=== PATIENT | female | born 1970 | race Caucasian/White ===

== ENCOUNTER → 2024-01-19 14:16 | Outpatient (REF) | payer OTHER, SELFPAY | LOC: RCS 14:16 | PROVIDERS: ATTENDING PHYSICIAN Internal Medicine Cardiovascular Disease; FAMILY PHYSICIAN Student in an Organized Health Care Education/Training Program | DX: R07.89 Other chest pain (principal); R00.2 Palpitations; R93.1 Abnormal findings on diagnostic imaging of heart and coronary circulation | CPT/HCPCS: 93017; 93350 ==

== ENCOUNTER 2025-03-30 20:28 | Emergency (ER) | payer OTHER, SELFPAY ==
[2025-03-30 20:33] VITALS: BP 170/107
[2025-03-30 21:12] LABS: Hematocrit 41.5 % (37.0-47.0); Hemoglobin 14.0 g/dL (12.0-16.0); Mean Corp Hgb Conc. 33.7 g/dL (33.0-37.0); Mean Corpuscular Volume 87.6 fL (81.0-99.0); Nucleated Red Blood Cells % 0 %; Platelet Count 404 10^3/uL (130-400); Red Cell Dist. Width 12.4 % (11.5-14.5)
[2025-03-30 21:29] LABS: ALT (SGPT) 34 U/L (0-35); AST (SGOT) 27 U/L (14-36); Albumin 4.4 g/dl (3.5-5.0); Alkaline Phosphatase 69 U/L (38-126); Blood Urea Nitrogen 20 mg/dl (7-17); Calcium 9.4 mg/dl (8.4-10.2); Carbon Dioxide 26 mmol/L (22-30); Chloride 104 mmol/L (98-107); Glucose 151 mg/dl (70-99); Potassium 3.6 mmol/L (3.5-5.1); Sodium 137 mmol/L (135-145); Total Protein 7.3 g/dl (6.3-8.2); eGFR > 60.00
[2025-03-30 22:37] VITALS: BP 161/82
[2025-03-30 23:00] VITALS: BP 132/77
--- NOTE | 2025-03-30 23:42 | ED.GENMED ---
History of Present Illness
General
Chief Complaint: Blood Pressure Problem
Source: patient
Exam Limitations: none
Time Seen by Provider: 03/30/25 23:18
Nursing documentation reviewed up to this point in time: agreed with
History of Present Illness
History of Present Illness:
Patient with history of hypertension on lisinopril and HCTZ, presents to ED secondary to not feeling well at home. When she checks of blood pressure, her systolic blood pressure was greater than 180, prompting visit to ED. Denies blurry vision.
Denies dizziness. Denies loss of sensation or weakness. Denies difficulty with speech. Denies difficulty with ambulation. Patient did take her evening dose of lisinopril at 6:30 PM, prior to arrival.
Review of Systems
Review of Systems
Allergies reviewed?: Yes
Constitutional: Reports no symptoms
Respiratory: Reports no symptoms; Denies trouble breathing
Cardiac: Reports no symptoms; Denies chest pain or palpitations
ABD/GI: Reports no symptoms; Denies vomiting
Musculoskeletal: Reports no symptoms
Skin: Reports no symptoms
Neurological: Reports headache; Denies dizzy or weakness
Phy Exam
Physical Exam
Physical Exam:
Physical Exam
General: no apparent distress, not acutely ill. afebrile
Head: nc/at. eomi
Neck: supple. normal range of motion
Heart: s1/s2 regular rate and rhythm.
Lungs: no acute respiratory distress. clear bilaterally
Abdomen: normal bowel sounds. not tender.
Neuro: alert and oriented x 3. no focal neurological deficits. normal speech
Skin: no rash
Psychiatric: well kept. interactive and cooperative
Extremities: no edema. no calf tenderness.
Course
Orders/Labs/Results
Orders:
Orders
03/30/25 20:36
EKG [Electrocardiogram (*1)] Urgent
Reason for Study: Tachycardia
EKG- Treatment ONCE
03/30/25 21:02
Complete Blood Count/With Diff Urgent
Comprehensive Metabolic Panel Urgent
Abnormal Lab Results
03/30/25
21:02
WBC 11.3 H 10^3/uL
(4.8-10.8)
Plt Count 404 H 10^3/uL
(130-400)
Absolute Neuts (auto) 6.6 H 10^3/uL
(1.4-6.5)
Absolute Lymphs (auto) 3.7 H 10^3/uL
(1.2-3.4)
Absolute Monos (auto) 0.7 H 10^3/uL
(0.1-0.6)
BUN 20 H mg/dl
(7-17)
Glucose 151 H mg/dl
(70-99)
03/30/25 21:02
03/30/25 21:02
Vital Signs
Initial and Last Documented VS:
Initial Vital Signs
Temp Pulse Resp BP Pulse Ox
98.2 F 120 20 170/107 97
03/30/25 20:33 03/30/25 20:33 03/30/25 20:33 03/30/25 20:33 03/30/25 20:33
Last Documented Vital Signs
Temp Pulse Resp BP Pulse Ox
98.2 F 84 21 132/77 95
03/30/25 20:33 03/30/25 23:45 03/30/25 23:45 03/30/25 23:00 03/30/25 23:45
MDM/Problems Addressed
MDM/Problems Addressed:
Patient noted to have improved blood pressure during observation ED, with significant improvement in symptoms. Patient otherwise is afebrile, hemodynamically stable, and is without any neurological deficit, at time of discharge. Blood pressure
132/77 at time of discharge, which patient reports is her baseline blood pressure. Patient will be advised to keep daily log of her blood pressure along with PCP follow-up as an outpatient.
*Pulse Oximetry
SaO2: 95
Oxygen Mode of Delivery: Room air
Patient hypoxic: no
*Critical Care Note
Total Time (30-74mins, 75-104mins- exclusive of procedures): Not Applicable
ED Attending Note
-
Portions of this chart may have been created with voice recognition software.� Occasional wrong word or��sound alike� substitutions may have occurred due to the inherent limitations of voice recognition software.
Discharge Plan
Departure
Patient Disposition: Home (Routine Discharge)
Date of Disposition: 03/30/25
Time of Disposition: 23:47
Patient with high blood pressure during this ER visit?: Yes
Condition: Good
Discharge Problem:
Hypertension
Instructions: High Blood Pressure (DC)
Prescriptions:
No Action
lisinopril 20 mg Tablet
20 mg PO QPM
omeprazole 20 mg Capsule,Delayed Release(Dr/Ec)
20 mg PO .EVERY OTHER DAY
glucosamine sulfate [Glucosamine] 750 mg Tablet
1,500 mg PO DAILY
cholecalciferol (vitamin D3) [Vitamin D3] 50 mcg (2,000 unit) Capsule
50 mcg PO DAILY
magnesium citrate 125 mg Capsule
250 mg PO DAILY
One-A-Day Women's Complete 18 mg iron- 400 mcg Tablet
1 tab PO DAILY
Condroitin
1,200 mg PO DAILY
oxycodone 5 mg tablet
5 mg PO Q6H PRN (Reason: severe cramps) Qty: 5 0RF
simvastatin 5 mg Tablet
5 mg PO DAILY
hydrochlorothiazide 12.5 mg Tablet
12.5 mg PO DAILY
Referrals:
Brett Buckner MD [Family Provider, Family Practice]
Activity Restrictions/Additional Instructions:
As discussed, please follow-up with your primary care physician for reevaluation. Please consider return to ED with worsening symptoms.
Interventions
Interventions:
*Risk Screen - Suicide Last Done: 03/30/25 20:33
*General Assessment Last Done: 03/30/25 20:33
*Neglect/Abuse Screening Last Done: 03/30/25 20:33
*ED COVID-19 Vaccine History Last Done: 03/30/25 23:53
*ED Influenza Vaccine History Last Done: 03/30/25 23:53
*Nursing Disposition Last Done: 03/30/25 23:53
ED- Cardiac Assessment Last Done: 03/30/25 22:41
ED- Neurological Assessment Last Done: 03/30/25 22:41
ED- Pulmonary Assessment Last Done: 03/30/25 22:41
Discharge Date and Time
Discharge Date/Time: 03/31/25 00:02
Print Language: MAORI
== END 2025-03-31 00:02 | disposition home or self-care (01) ==
LOC: EMR 20:28
PROVIDERS: EMERGENCY PHYSICIAN Emergency Medicine; FAMILY PHYSICIAN Family Medicine
DX: I10 Essential (primary) hypertension (principal)
CPT/HCPCS: 99283; 80053; 85025; 93005